=== PATIENT | female | born 1945 | race Caucasian/White ===

== ENCOUNTER 2025-01-09 11:38 | Day surgery (SDC) | payer MEDICARE, OTHER ==
[2025-01-05 12:20] LABS: MEAN PLATELET VOLUME 8.6 FL (7.4-10.4); RED CELL DISTRIBUTION WIDTH 14.2 % (11.5-14.5)
[2025-01-05 12:33] LABS: APTT 26 SECONDS (22-32); INR 1.1 INR
[2025-01-05 12:35] LABS: CHOL/HDL RATIO 5.2 (0.00-4.99); CREATININE 1.07 MG/DL (0.40-0.90); LDL CHOLESTEROL 145 MG/DL (50-100); TOTAL CARBON DIOXIDE 30.6 MMOL/L (24-32); eGFR 50 ML/MIN
[~2025-01-09] VITALS: Ht 157.5 cm; Wt 69.6 kg
[2025-01-09] VITALS (11 sets, daily range): BP systolic 97–158; BP diastolic 63–116; PULSE 53–95; RESP 12–16; TEMP 98; O2SAT 93–98
[~2025-01-09 11:38] MED LIST: ASPI-103 PO; EZET10TA80 PO; LOSA50TA64 PO; METO-395 PO; MULT-1085 PO; SEMA0.258
--- NOTE | 2025-01-09 12:12 | ELECTROCARDIOGRAPH REPORT ---
[facility] Test Date: 2025-01-09 Test Time: 12:05:33 Pat Name: CESILIA MCKEON Department: [facility] O Patient ID: [facility]-[id number] Room: Gender: F [employer]: JUAN ALBERTO : 1945 Requested By: ANTHONY PASCUAL Order Number: [id number] Reading MD: Dr. Kevin Ashton Measurements Intervals [place] Rate: 95 P: 78 MA: 127 QRS: 80 QRSD: 87 T: 49 QT: 362 QTc: 455 Interpretive Statements Sinus tachycardia Ventricular trigeminy Consider right atrial enlargement Electronically Signed On 01-10-2025 13:23:[address] Kevin Ashton Please click the below link to view image of tracing.
[2025-01-09] MEDS ORDERED: verapamil 2.5 mg/ml inj IV ONE (14:01)
[2025-01-09] MEDS ORDERED: midazolam 1 mg/ML 2ml injection ONE (14:01)
[2025-01-09] MEDS ORDERED: heparin 1,000unit/ml 10ml vial 10 ML ONE (14:01)
[2025-01-09] MEDS ORDERED: LIDOcaine 1% (10mg/ml) 2ml vial ONE (14:01)
[2025-01-09] MEDS ORDERED: fentaNYL/PF 50MCG/1 ML 2ML syringe ONE (14:01)
[2025-01-09] MEDS ORDERED: nitroGLYCERIN 500mcg/5mL D5W 5 ML IV ONE (14:37)
[2025-01-09] MEDS ORDERED: iohexol 350 MG/ML 50ML vial IV ONE (14:58)
[2025-01-09] MEDS ORDERED: HYDROcodone/acetaminophen 5mg/325mg tablet PO PRN (15:40)
[2025-01-09] MEDS ORDERED: HYDROcodone/acetaminophen 10/325mg tab PO PRN (15:40)
--- NOTE | 2025-01-09 15:57 | CARDIAC CATH REPORT ---
Cardiac Cath Report Providers to CC CC: HIGINIO PASCUAL MD Procedure Comments: 1. Left Heart Catheterization 2. Selective Coronary Angiography 3. Right Radial Artery Access Brief History/Indications: 79yo woman with HTN, HLD, DM and increasing dyspnea on exertion, found to have inferoapical ischemia on stress testing. Techniques: After informed consent was obtained, the patient was brought to the cardiac catheterization laboratory and prepped and draped in usual sterile fashion for left heart catheterization and other procedures mentioned above. The right wrist was anesthetized with 1% Lidocaine and the right radial artery accessed via the Seldinger technique after which a 6Fr sheath was placed. Through this a TIG was used to engage the left ventricle, the left coronary artery, and the right coronary artery. Given separate ostia of the LAD/LCx, used a JL 3.5 to engage the LAD. At the conclusion of the case the sheath was removed and hemostasis obtained with a VascBand. Findings Findings: HEMODYNAMICS: LV: 171/5 mmHg LVEDP: 10 mmHg Ao: 171/86, MAP 102 mmHg CORONARY ARTERIES: Rt Dominant LMCA: Absent, separate ostia of the LAD/LCx LAD: 70% mid stenosis followed by 90% stenosis at the D2 branch D1: Small, Luminal Irregularities D2: Luminal Irregularities LCx: Luminal Irregularities OM1: Luminal Irregularities OM2: Large, extends to the apex of the heart, luminal irregularities RCA: Prox 30-40% stenosis PDA: Ostial 70-80% stenosis PL: Luminal Irregularities Results Results: 1. 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 RRA Access, closed with VascBand RECOMMENDATIONS: 1. Given DM and multivessel CAD involving the LAD, will discuss with CT Surgery 2. Cont uptitration of max-tolerated GDMT ANTHONY PASCUAL MD Jan 09, 2025 15:57
== END 2025-01-09 19:20 | disposition home or self-care (01) ==
LOC: SSTAY O 11:38
PROVIDERS: ATTEND Student in an Organized Health Care Education/Training Program
DX: R94.39 Abnormal result of other cardiovascular function study (principal); I25.10 Atherosclerotic heart disease of native coronary artery without angina pectoris; I10 Essential (primary) hypertension; E11.9 Type 2 diabetes mellitus without complications; E78.00 Pure hypercholesterolemia, unspecified; Z79.82 Long term (current) use of aspirin; Z79.899 Other long term (current) drug therapy; Z82.49 Family history of ischemic heart disease and other diseases of the circulatory system
CPT/HCPCS: 36415; 80048; 80061; 82948; 85025; 85610; 85730; 93005; 93458; 99152; 99153; A6258; A6402; C1894; J1644; J2003; J2250; J3010; J3490; J7030; Q0163; Q9967; Z7610; A6449